=== PATIENT | female | born 1940 | race Caucasian/White ===

== ENCOUNTER → 2017-12-31 16:26 | Outpatient (CLI) | payer MEDICARE, OTHER, SELFPAY ==
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
== END ==
PROVIDERS: Family Provider Family Medicine; PCP Family Medicine; Visit Provider Family Medicine
DX: R04.2 Hemoptysis (principal)
CPT/HCPCS: 71046

== ENCOUNTER 2018-03-28 21:16 | Emergency (ER) | payer MEDICARE, OTHER, SELFPAY ==
[2018-03-28 21:17] VITALS: BP 220/77; PULSE 60; RESP 16; TEMP 36.7; O2SAT 97; BMI 31.1
[2018-03-28 21:22] VITALS: BP 220/77; PULSE 60; RESP 14; O2SAT 96; O2SAT 97
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
[2018-03-28 22:19] LABS: Anion Gap 8 (5-15); BUN 24 mg/dL (7-18); BUN/Creat Ratio 20.3 RATIO (10-20); Calcium,Total 9.1 mg/dL (8.5-10.1); Chloride 105 mmol/L (98-107); Creatinine, Serum 1.18 mg/dL (0.55-1.02); EST Glomerular Filtration Rate 47 mL/min (>60); Est Glom Filt Rate - Afr Amer 57 mL/min (>60); Estimated Creatinine Clearance 29.65 ml/min; Glucose 149 mg/dL (74-106); Potassium 3.6 mmol/L (3.5-5.1); Sodium Level 137 mmol/L (136-145)
[2018-03-29] VITALS: BP 171/92; PULSE 69; RESP 16; O2SAT 93
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
== END 2018-03-29 00:24 | disposition home or self-care (01) ==
LOC: ED 21:55
PROVIDERS: Emergency Provider Emergency Medicine; Family Provider Family Medicine; PCP Family Medicine
DX: S50.12XA Contusion of left forearm, initial encounter (principal); S80.02XA Contusion of left knee, initial encounter; M54.2 Cervicalgia; V49.40XA Driver injured in collision with unspecified motor vehicles in traffic accident, initial encounter; Y93.89 Activity, other specified; Y92.9 Unspecified place or not applicable; I10 Essential (primary) hypertension; E78.00 Pure hypercholesterolemia, unspecified; Z79.82 Long term (current) use of aspirin; Z79.899 Other long term (current) drug therapy
CPT/HCPCS: 70450; 70498; 72125; 73564; 80048; 99284; Q9967; A4216

== ENCOUNTER → 2018-04-24 10:40 | Outpatient (CLI) | payer MEDICARE, OTHER, SELFPAY ==
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
== END ==
LOC: MTLAB 10:55 → MTRAD 10:56
PROVIDERS: Family Provider Family Medicine; PCP Family Medicine; Visit Provider Family Medicine
DX: M79.632 Pain in left forearm (principal)
CPT/HCPCS: 73090

== ENCOUNTER → 2019-05-21 12:10 | Outpatient (CLI) | payer MEDICARE, SELFPAY ==
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
== END ==
PROVIDERS: Family Provider Family Medicine; PCP Family Medicine; Referring Provider Family Medicine; Visit Provider Family Medicine
DX: M77.31 Calcaneal spur, right foot (principal); M19.071 Primary osteoarthritis, right ankle and foot
CPT/HCPCS: 73630

== ENCOUNTER 2019-06-05 18:53 | Emergency (ER) | payer MEDICARE, SELFPAY ==
[2019-06-05 18:54] VITALS: BP 220/103; PULSE 85; RESP 15; TEMP 36.6; O2SAT 98
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
--- NOTE | 2019-06-05 20:16 | ED.DEP ---
ED Disposition - Plan for ED Patient: Instructions: FALL, Mechanical, LACERATION, Extrem (Suture, Staple or Tape), CONTUSION, Elbow, Hip Contusion Referrals: Gricel Helton MD [Primary Care Provider] - 10 Day for suture removal
[2019-06-05 20:27] VITALS: BP 188/60; PULSE 80; RESP 16; O2SAT 97
== END 2019-06-05 20:28 | disposition home or self-care (01) ==
LOC: ED 19:12
PROVIDERS: Emergency Provider Emergency Medicine; Family Provider Family Medicine; PCP Family Medicine
DX: S51.011A Laceration without foreign body of right elbow, initial encounter (principal); S40.011A Contusion of right shoulder, initial encounter; S50.01XA Contusion of right elbow, initial encounter; S70.01XA Contusion of right hip, initial encounter; W10.9XXA Fall (on) (from) unspecified stairs and steps, initial encounter; Y93.K1 Activity, walking an animal; Y92.9 Unspecified place or not applicable; I10 Essential (primary) hypertension; Z79.82 Long term (current) use of aspirin; Z79.899 Other long term (current) drug therapy
CPT/HCPCS: 12001; 73030; 73080; 99284

== ENCOUNTER → 2020-04-11 15:30 | Outpatient (CLI) | payer MEDICARE, SELFPAY ==
[2020-04-11 18:10] LABS: Anion Gap 8 (5-15); BUN 19 mg/dL (7-18); BUN/Creat Ratio 15.3 RATIO (10-20); Chloride 104 mmol/L (98-107); Cholesterol 181 mg/dL (200); Creatinine, Serum 1.24 mg/dL (0.55-1.02); EST Glomerular Filtration Rate 44 mL/min (>60); Est Glom Filt Rate - Afr Amer 54 mL/min (>60); Glucose 171 mg/dL (74-106); High Density Lipoprotein 58 mg/dL; Potassium 3.7 mmol/L (3.5-5.1); Sodium Level 138 mmol/L (136-145); Triglycerides 162 mg/dL; Very Low Density Lipoprotein 32 mg/dL (5-40)
== END ==
PROVIDERS: PCP Family Medicine; Visit Provider Family Medicine
DX: I10 Essential (primary) hypertension (principal)
CPT/HCPCS: 36415; 80048; 80061

== ENCOUNTER → 2020-10-20 11:24 | Outpatient (CLI) | payer MEDICARE, SELFPAY ==
[2020-10-20 13:05] LABS: Hemoglobin A1c 6.5 % (3.8-5.6)
== END ==
PROVIDERS: PCP Family Medicine; Referring Provider Family Medicine; Visit Provider Family Medicine
DX: R73.02 Impaired glucose tolerance (oral) (principal); E55.9 Vitamin D deficiency, unspecified
CPT/HCPCS: 36415; 82306; 83036

== ENCOUNTER → 2021-08-13 13:03 | Outpatient (CLI) | payer MEDICARE, SELFPAY | PROVIDERS: PCP Family Medicine; Visit Provider Family Medicine | DX: U07.1 COVID-19 (principal) | CPT/HCPCS: 87635; U0005; U0003 ==

== ENCOUNTER 2021-08-15 12:10 | Outpatient (CLI) | payer MEDICARE, SELFPAY ==
[2021-08-15] MEDS: 0.9% Saline Lock 10 ML Syringe IV (12:39)
[2021-08-15 12:44] VITALS: BP 141/58; PULSE 78; RESP 16; TEMP 36.9; O2SAT 97; BMI 30.2
[2021-08-15 13:18] VITALS: BP 126/54; PULSE 72; RESP 16; TEMP 36.8; O2SAT 98
[2021-08-15 14:06] VITALS: BP 145/58; PULSE 72; RESP 16; TEMP 36.8; O2SAT 98
[2022-05-15 15:08] LABS: Absolute Lymphocyte Count 1.94 X10^3/uL (0.83-4.51); Absolute Neutrophil Count 3.2 X10^3/uL (2.0-7.7); Basophil# 0.02 X10^3/uL; Basophil% 0.3 % (0-1); Eosinophil# 0.19 X10^3/uL; Eosinophils% 3.2 % (0-5); Hematocrit 37.6 % (37-47); Hemoglobin 13.3 g/dL (12.0-15.0); Lymphocyte # 1.94 X10^3/ul (0.83-4.51); Lymphocyte % 32.7 % (19-41); Mean Corp Hgb Conc 35.4 g/dL (32-36); Mean Corpuscular Volume 93.3 fL (81-99); Mean Platelet Vol. 9.9 fl (6.2-12.0); Monocyte# 0.53 X10^3/uL; Monocyte% 8.9 % (0-10); NRBC Flagged by Analyzer 0 % (0-5); Neutrophil # 3.23 X10^3/uL (2.7-7.7); Neutrophil % 54.6 % (47-70); Platelet Count 251 K/mm3 (150-450); RBC Distribution Width CV 12.2 % (11.6-14.6); RBC Distribution Width SD 42.5 fl (35.1-43.9); Red Blood Count 4.03 M/mm3 (4.2-5.4); White Blood Count 5.9 K/mm3 (4.4-11.0)
[2022-05-15 15:37] LABS: Anion Gap 6 (5-15); BUN 20 mg/dL (7-18); BUN/Creat Ratio 21.3 RATIO (10-20); Calcium,Total 9.1 mg/dL (8.5-10.1); Chloride 106 mmol/L (98-107); Creatinine, Serum 0.94 mg/dL (0.55-1.02); EST Glomerular Filtration Rate 61 mL/min (>60); Est Glom Filt Rate - Afr Amer 73 mL/min (>60); Estimated Creatinine Clearance 34.82 ml/min; Glucose 124 mg/dL (74-106); Potassium 4.1 mmol/L (3.5-5.1); Sodium Level 137 mmol/L (136-145); Thyroid Stim Hormone (TSH) 2.25 uIU/mL (0.358-3.74)
== END 2021-08-15 14:20 | disposition home or self-care (01) ==
LOC: MS3OUT 12:10 → MS3 12:11
PROVIDERS: PCP Family Medicine; Referring Provider Nurse Practitioner Adult Health; Visit Provider Nurse Practitioner Adult Health
DX: Z23 Encounter for immunization (principal); U07.1 COVID-19
CPT/HCPCS: 36415; 80048; 84443; 85025; J7050; M0245; Q0245; A4216

== ENCOUNTER → 2022-05-15 | Outpatient (CLI) | payer MEDICARE, SELFPAY | END | disposition home or self-care (01) | LOC: MFPLAB 12:03 | PROVIDERS: PCP Family Medicine; Referring Provider Family Medicine; Visit Provider Family Medicine | DX: I10 Essential (primary) hypertension (principal); R53.83 Other fatigue ==

== ENCOUNTER 2023-02-08 13:27 | Emergency (ER) | payer MEDICARE, SELFPAY ==
[2023-02-08 13:28] VITALS: BP 227/104; PULSE 91; RESP 14; TEMP 36.6; O2SAT 98; BMI 33.2
--- NOTE | 2023-02-08 13:35 | EKG12_ITS ---
Test Reason : VISION CHANGES Blood Pressure : / mmHG Vent. Rate : 081 BPM Atrial Rate : 081 BPM P-R Int : 192 ms QRS Dur : 096 ms QT Int : 380 ms P-R-T Axes : 070 046 039 degrees QTc Int : 441 ms Normal sinus rhythm Low voltage QRS Nonspecific ST abnormality Abnormal ECG Confirmed by MONTEZ DIEGO, SONDRA ([id number]), market editor MARY METZ ([id number]) on 02/10/2023 2:44:58 PM Referred By: DRAED Confirmed By:VALENTIN HERRMANN MD
--- NOTE | 2023-02-08 13:35 | RAD_ITS ---
INDICATION: Cough EXAMINATION/TECHNIQUE: X-RAY - XR Chest 1 View COMPARISON: December 31, 2017 FINDINGS: LINES/DEVICES: None. LUNGS: No consolidation, edema or effusion. No pneumothorax. MEDIASTINUM AND CARDIOVASCULAR STRUCTURES: Cardiac silhouette not enlarged. Central airways and mediastinal contour are unremarkable. BONES AND SOFT TISSUES: Unremarkable. RAD/Chest 1 View (Portable) IMPRESSION: No radiographic evidence of acute cardiopulmonary disease. Electronically Signed: Jamee Rogel MD at 14:46 EDT ,
--- NOTE | 2023-02-08 13:35 | CT_ITS ---
INDICATION: stroke EXAMINATION: CT BRAIN - CT Head or Brain W/O Contrast Injection TECHNIQUE: Multiple axial images were obtained of the head without intravenous contrast. A radiation dose optimization technique was used for this scan. IV Contrast dosage and agent: None. RADIATION DOSAGE (If Supplied By Facility): CTDIvol = ( 44.99 ) mGy, DLP = ( 779.24 ) mGycm COMPARISON: March 28, 2018 FINDINGS: BRAIN PARENCHYMA: No intra- or extra-axial hemorrhage. No evidence of acute infarct. No intracranial mass or mass effect. There is preservation of the vo/white matter interface. There is a stable focus of encephalomalacia within the right occipital lobe suggestive of an old infarct. Posterior fossa structures are unremarkable. CSF SPACES: Appropriate for age. No hydrocephalus. Basal cisterns are patent. CALVARIUM, SKULL BASE, PARANASAL SINUSES AND MASTOID AIR CELLS: Clear. No discrete lytic or blastic abnormalities. ORBITS: Both globes, extraocular muscles, optic nerves and retrobulbar fat appear unremarkable. ASPECTS Score for Acute Strokes: 10 CT/Brain/Head without Contrast IMPRESSION: Stable examination demonstrating no acute intracranial process. Electronically Signed: Jamee Rogel MD at 14:46 EDT ,
[2023-02-08 13:51] VITALS: BP 200/68; PULSE 78; RESP 16; O2SAT 96
[2023-02-08 14:03] LABS: Absolute Lymphocyte Count 3.84 X10^3/uL (0.83-4.51); Absolute Neutrophil Count 4.5 X10^3/uL (2.0-7.7); Basophil# 0.03 X10^3/uL; Basophil% 0.3 % (0-1); Eosinophil# 0.15 X10^3/uL; Eosinophils% 1.7 % (0-5); Hematocrit 39.6 % (37-47); Hemoglobin 13.6 g/dL (12.0-15.0); Lymphocyte # 3.84 X10^3/ul (0.83-4.51); Lymphocyte % 42.6 % (19-41); Mean Corp Hgb Conc 34.3 g/dL (32-36); Mean Corpuscular Hgb 31.9 pg (27.0-32.0); Monocyte% 5.5 % (0-10); NRBC Flagged by Analyzer 0 % (0-5); Neutrophil # 4.47 X10^3/uL (2.7-7.7); Neutrophil % 49.6 % (47-70); Platelet Count 267 K/mm3 (150-450); RBC Distribution Width SD 41.4 fl (35.1-43.9); Red Blood Count 4.26 M/mm3 (4.2-5.4)
--- NOTE | 2023-02-08 14:05 | EX.ED.DYSGE1 ---
HPI History of Present Illness Chief Complaint: Vision Prob Informant: patient Onset/Context/Timing Onset: Today Context: Sudden Onset Timing: Continuous Quality: Blurry vision, diplopia Location: Right eye Narrative Narrative: Patient presents with blurry vision in her right eye that began today. Patient states she was feeling fine at 11 AM when she laid down for a nap. Patient states that when she woke up from her nap her right eye was blurry. Patient states she was also seeing some double vision when she looked up close. Patient states the diplopia resolved when she looked at a distance. Patient states that when she closes her right eye her vision is normal. Patient states when she closes her left eye her right eye is blurry. Patient denies any loss of vision. Patient denies any headaches. Patient denies any flashes or floaters. Patient denies any paresthesias or weakness in her extremities. Patient denies any difficulty talking or difficulty swallowing. Patient denies any other symptoms. [facility] Medical History Abnormal stress test Family history of hypertension Hyperlipidemia Hypertension Localized edema Palpitations Paroxysmal atrial flutter Premature ventricular contraction Home Medications aspirin 81 mg tablet,delayed release (Adult Low Dose Aspirin) 81 mg PO DAILY 02/28/16 [History Last Taken 02/29/16] metoprolol succinate 50 mg tablet,extended release 24 hr 50 mg PO DAILY #90 tabs 04/16/18 [Rx Last Taken Unknown] losartan 50 mg tablet 25 mg PO DAILY 06/05/19 [History Last Taken Unknown] Allergy/AdvReac Type Severity Reaction Status Date / Time heparin Allergy Unknown Verified 02/08/23 13:34 Family History (Updated 12/03/17 @ 13:10 by Gunjan Mora) Father CAD (coronary artery disease) Mother Diabetes Hypertension Sister Diabetes Social History Smoking Status: Never smoker alcohol intake: current details: occasional substance use type: does not use ROS ROS ED Constitutional Constitutional ED: Denies chills or fever(s) Eyes Eyes: Reports blurry vision, change in vision and diplopia ENT ENT ED: Denies rhinorrhea or sore throat Cardiovascular Cardiovascular: Denies chest pain or palpitations Respiratory/Chest Respiratory/Chest: Denies cough or dyspnea Gastrointestinal Gastrointestinal: Denies nausea or vomiting Genitourinary Genitourinary ED: Denies dysuria or hematuria Musculoskeletal Musculoskeletal: Denies back pain or neck pain Integumentary Denies abscess or rash Neurologic Neurologic: Denies headache(s) or weakness Allergic/Immunologic Allergic/Immunologic ED: Denies mouth swelling or urticaria EXAM Physical Exam Const Vital Signs: 02/08/23 13:28 02/08/23 13:51 02/08/23 13:51 Temperature 97.8 F Temperature Source Temporal Pulse Rate 91 78 Respiratory Rate 14 16 Blood Pressure 227/104 H 200/68 H Blood Pressure Mean 145 112 Pulse Ox 98 96 Oxygen Delivery Method Room Air Room Air Room Air 02/08/23 14:41 Temperature Temperature Source Pulse Rate 84 Respiratory Rate 14 Blood Pressure 186/57 H Blood Pressure Mean 100 Pulse Ox 95 Oxygen Delivery Method Room Air Positive well nourished, well developed and obese General Appearance ED: well developed and NAD Nutritional Appearance: obese HEENT Reports moist mucous membranes Eyes EOMs intact bilaterally Eyes Narrative: The right pupil was approximately 5 mm and reactive. The left pupil was approximately 3 mm and reactive. Funduscopic examination was benign. Tetracaine and fluorescein dye was applied to the right eye. There are no corneal abrasions noted. There is no hyphema noted. There is no cell or flare noted. Pablo-Pen was used. The intraocular pressure of the right eye was 18. Neck supple and no JVD Resp normal respiratory effort and clear to auscultation bilaterally Cardio regular rate and regular rhythm GI normal to inspection, nondistended, normoactive bowel sounds and non-tender Palpation: soft Extremity normal to inspection General Extremety ED: Negative for edema or tenderness General Extremity: Negative for edema Neuro oriented x3, CN's II-XII intact bilaterally and no sensory deficits noted Sensorium / Orientation: alert Motor Exam: strength 5/5 throughout Psych mental status grossly normal Skin no rashes or lesions noted MDM MDM MDM Narrative Medical decision making narrative: Differential diagnosis includes stroke, corneal abrasion, cardiac dysrhythmia, cardiac ischemia, hypertensive urgency, electrolyte abnormality, and migraine. CT scan of the brain will be obtained to assess for stroke. Chest x-ray will be obtained to assess for pneumonia, cardiomegaly, and widened mediastinum. CBC will be obtained to assess for leukocytosis and anemia. EKG will be obtained to assess for cardiac dysrhythmia and cardiac ischemia. Basic metabolic profile will be obtained to assess for electrolyte abnormality and PT with INR PTT will be obtained to assess for coagulopathy. High-sensitivity troponin will be obtained to assess for cardiac ischemia. Urinalysis will be obtained to assess for urinary tract infection. Lab Data Attestation: I reviewed the patient's lab results. Lab results narrative: CBC was reviewed and was within normal limits. Basic metabolic profile was reviewed and was essentially within normal limits. Glucose was slightly elevated at 169. PT was INR and PTT were reviewed and were within normal limits. High-sensitivity troponin was reviewed and was normal at 6. Urinalysis was reviewed and was within normal limits. Labs: Laboratory Results - last 24 hr 02/08/23 02/08/23 02/08/23 13:45 13:45 13:45 WBC 9.0 RBC 4.26 Hgb 13.6 Hct 39.6 MCV 93.0 MCH 31.9 MCHC 34.3 RDW Std Deviation 41.4 RDW Coeff of Cici 12.0 Plt Count 267 MPV 10.0 Immature Gran % (Auto) 0.300 Neut % (Auto) 49.6 Lymph % (Auto) 42.6 H [place] % (Auto) 5.5 Eos % (Auto) 1.7 Baso % (Auto) 0.3 Absolute Neuts (auto) 4.5 Absolute Lymphs (auto) 3.84 Nucleated RBC % 0 PT 11.5 L INR 0.8 APTT 23.0 L Sodium 136 Potassium 3.5 Chloride 102 Carbon Dioxide 24.0 Anion Gap 10 BUN 19 H Creatinine 1.02 Estim Creat Clear Calc 30.02 Est GFR (MDRD) Af Amer 67 Est GFR (MDRD) Non-Af 55 L BUN/Creatinine Ratio 18.6 Glucose 169 H Calcium 9.7 Troponin I High Sens 6 Urine Color Urine Clarity Urine pH Ur Specific [place] Urine Protein Urine Glucose (UA) Urine Ketones Urine Occult Blood Urine Nitrite Urine Bilirubin Urine Urobilinogen Ur Leukocyte Esterase Urine RBC Urine WBC Ur Squamous Epith Cells Urine Bacteria Urine Mucus 02/08/23 14:00 WBC RBC Hgb Hct MCV MCH MCHC RDW Std Deviation RDW Coeff of Cici Plt Count MPV Immature Gran % (Auto) Neut % (Auto) Lymph % (Auto) [place] % (Auto) Eos % (Auto) Baso % (Auto) Absolute Neuts (auto) Absolute Lymphs (auto) Nucleated RBC % PT INR APTT Sodium Potassium Chloride Carbon Dioxide Anion Gap BUN Creatinine Estim Creat Clear Calc Est GFR (MDRD) Af Amer Est GFR (MDRD) Non-Af BUN/Creatinine Ratio Glucose Calcium Troponin I High Sens Urine Color Yellow Urine Clarity Clear Urine pH 6.5 Ur Specific [place] 1.010 Urine Protein Negative Urine Glucose (UA) Normal Urine Ketones Negative Urine Occult Blood 10 H Urine Nitrite Negative Urine Bilirubin Negative Urine Urobilinogen Normal Ur Leukocyte Esterase 25 H Urine RBC 0 SEEN Urine WBC 0 SEEN Ur Squamous Epith Cells 0 SEEN Urine Bacteria 0 SEEN Urine Mucus 0 SEEN Radiography Diagnostic Testing: Clinical Impression(s) from Imaging Studies Brain CT 02/08/23 13:35 IMPRESSION: Stable examination demonstrating no acute intracranial process. Electronically Signed: Jamee Rogel MD at 14:46 EDT , Chest X-Ray 02/08/23 13:35 IMPRESSION: No radiographic evidence of acute cardiopulmonary disease. Electronically Signed: Jamee Rogel MD at 14:46 EDT , Portable 1 view chest x-ray was obtained. On my independent interpretation, lung gee are clear. There is normal cardiac silhouette. Bony thorax is normal. There is no acute process noted. Radiologist also interpreted the x-ray and agrees. CT scan of the brain was obtained. There is no acute intracranial abnormality. This was interpreted by the radiologist and was also independently reviewed by myself. Treatment and Re-Evaluation :: Patient was given a dose of labetalol here. Patient's blood pressure improved to 186/57. Patient was still having some diplopia with near vision. There are no corneal abrasions noted. Patient was advised of all of her findings. Patient was given a referral for ophthalmology. Patient was instructed to follow-up in 2 to 3 days. Patient was instructed return if worse in any way. Patient understood and was agreeable with the plan. All questions were answered. Discharge Plan Triage Chief Complaint: Vision Prob ED Provider: Everett Dotson Dx/Rx/DC Orders Clinical Impression: Blurred vision, right eye, Hypertension Instructions: ED Blurred Vision, ED Hypertension, Established Prescriptions: No Action aspirin [Adult Low Dose Aspirin] 81 MG tablet,delayed release (DR/EC) 81 mg PO DAILY losartan 50 MG tablet 25 mg PO DAILY metoprolol succinate 50 mg tablet extended release 24 hr 50 mg PO DAILY Qty: 90 3RF Primary Care Provider: Gricel Helton Referrals: Gricel Helton MD [Primary Care Provider] - 3-5 Days Joyce Abdul MD [Med Staff - Active Staff] - 2 Days Disposition Disposition: Home, Self Care
[2023-02-08 14:11] LABS: International Normalized Ratio 0.8; Prothrombin Time (Protime)PT. 11.5 SECONDS (11.7-14.9)
[2023-02-08 14:17] LABS: Bacteria 0 SEEN /hpf (None Seen); Mucous, Urine 0 SEEN /hpf (<or=2+); Red Blood Cells-Urine 0 SEEN /hpf (0-5); Squamous Epithelial Cells - UA 0 SEEN /hpf (5-10); White Blood Cells 0 SEEN /hpf (0-5)
[2023-02-08 14:22] LABS: Color, Urine Yellow (Yellow); Glucose, Dipstick Normal (Normal); Ketone-Dipstick Negative (Negative); Leukocyte Esterase-Dipstick 25 /ul (Negative); Nitrite-Dipstick Negative (Negative); Occult Blood-Urine 10 /ul (Negative); Protein-Dipstick Negative (Negative); Urine Bilirubin Dipstick Negative (Negative); Urine Clarity Clear (Clear); Urine Urobilinogen Normal (Normal); Urine pH 6.5 (5.0 - 8.0)
[2023-02-08 14:24] LABS: Anion Gap 10 (5-15); BUN 19 mg/dL (7-18); BUN/Creat Ratio 18.6 RATIO (10-20); Calcium,Total 9.7 mg/dL (8.5-10.1); Chloride 102 mmol/L (98-107); Creatinine, Serum 1.02 mg/dL (0.55-1.02); EST Glomerular Filtration Rate 55 mL/min (>60); Est Glom Filt Rate - Afr Amer 67 mL/min (>60); Estimated Creatinine Clearance 30.02 ml/min; Glucose 169 mg/dL (74-106); Potassium 3.5 mmol/L (3.5-5.1); Sodium Level 136 mmol/L (136-145); Troponin-I HS (w/2H Reflex) 6 pg/mL (3.0-54.0)
[2023-02-08] MEDS: Labetalol (Prefilled) 20 MG/4 ML IV (14:39)
[2023-02-08 14:41] VITALS: BP 186/57; PULSE 84; RESP 14; O2SAT 95
[2023-02-08 15:40] VITALS: BP 143/53; PULSE 79; RESP 19; O2SAT 93
[2023-02-08] MEDS: Tetracaine 0.5% Ophthalmic Bottle 1 DRP OPHTHALMIC (15:41)
[2023-02-08] MEDS: Fluorescein 1 MG STRIP 1 STRIP OPHTHALMIC (15:41)
[2023-02-08 15:58] LABS: Reflex Troponin-HS? (from REC) Y
== END 2023-02-08 15:44 | disposition home or self-care (01) ==
PROVIDERS: Emergency Provider Emergency Medicine; PCP Family Medicine; Visit Provider Emergency Medicine
DX: H53.8 Other visual disturbances (principal); H53.2 Diplopia; I10 Essential (primary) hypertension; E66.9 Obesity, unspecified; Z79.82 Long term (current) use of aspirin; Z79.899 Other long term (current) drug therapy
CPT/HCPCS: 70450; 71045; 80048; 81001; 84484; 85025; 85610; 85730; 93005; 96374; 99283; A4216

== ENCOUNTER 2023-02-10 14:13 | Emergency (ER) | payer MEDICARE, SELFPAY ==
[2023-02-10 14:14] VITALS: BP 212/106; PULSE 77; RESP 18; TEMP 36.6; O2SAT 99; BMI 32.2
[2023-02-10 14:44] VITALS: BMI 32.1
[2023-02-10 15:15] VITALS: BP 208/68
--- NOTE | 2023-02-10 15:34 | EKG12_ITS ---
Test Reason : NEURO Blood Pressure : / mmHG Vent. Rate : 066 BPM Atrial Rate : 066 BPM P-R Int : 176 ms QRS Dur : 094 ms QT Int : 398 ms P-R-T Axes : 039 012 028 degrees QTc Int : 417 ms Sinus rhythm with Premature atrial complexes Low voltage QRS Borderline ECG Confirmed by MONTEZ DIEGO, SONDRA ([id number]), food expeditor MARY METZ ([id number]) on 02/11/2023 1:09:18 PM Referred By: Confirmed By:VALENTIN HERRMANN MD
--- NOTE | 2023-02-10 15:35 | EDS_ITS ---
HPI History of Present Illness Chief Complaint: Neuro S/Sx Narrative Narrative: Patient presents with blurry vision. Onset was 2 days ago. Patient had a CT brain performed. She had her eye pressure checked which was normal. Patient followed up with Dr. Pro today with concern for 3rd nerve palsy. Patient states that when she closes her left eye her right eye is a little blurry. She does report it is improved since Friday. She does not have any headache pain or holiness pain. She initially had a slight headache on Friday which is resolved. 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 She states she has been hydrating well because she is scared she might be dehydrated. Dr. Pro recommended evaluation with a CTA, sed rate, CRP. [facility] Medical History Abnormal stress test Family history of hypertension Hyperlipidemia Hypertension Localized edema Palpitations Paroxysmal atrial flutter Premature ventricular contraction Home Medications aspirin 81 mg tablet,delayed release (Adult Low Dose Aspirin) 81 mg PO DAILY 02/28/16 [History Last Taken 02/29/16] metoprolol succinate 50 mg tablet,extended release 24 hr 50 mg PO DAILY #90 tabs 04/16/18 [Rx Last Taken Unknown] losartan 50 mg tablet 25 mg PO DAILY 06/05/19 [History Last Taken Unknown] Allergy/AdvReac Type Severity Reaction Status Date / Time heparin Allergy Unknown Verified 02/08/23 13:34 Family History Father CAD (coronary artery disease) Mother Diabetes Hypertension Sister Diabetes Social History Smoking Status: Never smoker alcohol intake: current details: occasional substance use type: does not use ROS ROS ED Review of Systems ROS Unobtainable: Denies due to encephalopathy Constitutional Constitutional ED: Denies chills or fever(s) Eyes Eyes: Reports blurry vision right ENT ENT ED: Denies rhinorrhea or sore throat Cardiovascular Cardiovascular: Denies chest pain or palpitations Respiratory/Chest Respiratory/Chest: Denies cough or dyspnea Gastrointestinal Gastrointestinal: Denies abdominal pain or constipation Genitourinary Genitourinary ED: Denies dysuria or hematuria Musculoskeletal Musculoskeletal: Denies arthralgias or back pain Integumentary Denies abscess Neurologic Neurologic: Reports headache(s); Denies paresthesias Psychiatric Psychiatric: Denies anxiety or depression EXAM Physical Exam Const Vital Signs: 02/10/23 14:14 02/10/23 15:15 02/10/23 18:18 Temperature 97.9 F Temperature Source Temporal Pulse Rate 77 70 Respiratory Rate 18 15 Blood Pressure 212/106 H 208/68 H 163/62 H Blood Pressure Mean 141 106 95 Pulse Ox 99 94 Oxygen Delivery Method Room Air Positive well nourished General Appearance ED: NAD HEENT Reports moist mucous membranes and dry mucous membranes Mouth ED: Yes dry mucous membranes Mouth: dry mucous membranes Eyes EOMs intact bilaterally Periorbital: periorbital findings normal Eyelid: eyelids normal Sclera: sclera normal Cornea: cornea normal Pupil: pupil size - right, pupil size - left and other Other Details: Right thigh 5 mm, left eye 3 mm. Both eyes reactive. Neck no lymphadenopathy Chest Wall inspection of chest normal and palpation of chest normal Resp normal respiratory effort and clear to auscultation bilaterally Cardio regular rate and regular rhythm GI normal to inspection, nondistended, normoactive bowel sounds Palpation: soft Neuro oriented x3 and CN's II-XII intact bilaterally Sensorium / Orientation: alert Motor Exam: strength 5/5 throughout Psych mental status grossly normal Skin no rashes or lesions noted MDM MDM MDM Narrative Medical decision making narrative: Patient presents with hyperlipidemia. She states its not quite vertical and not quite horizontal. She reports its been ongoing for 2 days. Initially had a headache which has resolved. No pain in the temples. No dizziness or lightheadedness. Patient was seen by Dr. Pro today who was concerned for 3rd nerve palsy. On examination her pupils are unequal and the right one is 5 mm in the left one is 3 mm. They are both reactive to light. Differential includes CVA, aneurysm. Patient already had a CT that was negative for intracranial hemorrhage. CBC was obtained to assess white blood cell count, hemoglobin which was normal. ESR and CRP were obtained and were also normal. Renal function electrolytes appear to be within normal limits. LFTs are normal. Discussed with Dr. Brown who is on-call for ophthalmology. He recommended follow-up with Dr. Pro. He did not leave the patient need to be admitted. Patient was amenable to this. Impression: 1. 3rd nerve palsy Lab Data Attestation: I reviewed the patient's lab results. Labs: Laboratory Results - last 24 hr 02/10/23 02/10/23 02/10/23 15:45 15:45 15:45 WBC 6.5 RBC 4.28 Hgb 13.7 Hct 39.7 MCV 92.8 MCH 32.0 MCHC 34.5 RDW Std Deviation 41.6 RDW Coeff of Cici 12.2 Plt Count 256 MPV 9.8 Immature Gran % (Auto) 0.500 Neut % (Auto) 68.4 Lymph % (Auto) 22.0 [place] % (Auto) 6.8 Eos % (Auto) 2.0 Baso % (Auto) 0.3 Absolute Neuts (auto) 4.4 Absolute Lymphs (auto) 1.42 Nucleated RBC % 0 ESR 6 Sodium 137 Potassium 3.9 Chloride 105 Carbon Dioxide 24.0 Anion Gap 8 BUN 15 Creatinine 0.97 Estim Creat Clear Calc 33.16 Est GFR (MDRD) Af Amer 71 Est GFR (MDRD) Non-Af 59 L BUN/Creatinine Ratio 15.5 Glucose 161 H Calcium 9.2 Total Bilirubin 0.50 AST 16 ALT 25 Alkaline Phosphatase 108 Troponin I High Sens 5 C-React Prot Ext Range Total Protein 6.8 Albumin 3.5 Globulin 3.3 Albumin/Globulin Ratio 1.1 02/10/23 15:45 WBC RBC Hgb Hct MCV MCH MCHC RDW Std Deviation RDW Coeff of Cici Plt Count MPV Immature Gran % (Auto) Neut % (Auto) Lymph % (Auto) [place] % (Auto) Eos % (Auto) Baso % (Auto) Absolute Neuts (auto) Absolute Lymphs (auto) Nucleated RBC % ESR Sodium Potassium Chloride Carbon Dioxide Anion Gap BUN Creatinine Estim Creat Clear Calc Est GFR (MDRD) Af Amer Est GFR (MDRD) Non-Af BUN/Creatinine Ratio Glucose Calcium Total Bilirubin AST ALT Alkaline Phosphatase Troponin I High Sens C-React Prot Ext Range < 2.90 Total Protein Albumin Globulin Albumin/Globulin Ratio Radiography Diagnostic Testing: Clinical Impression(s) from Imaging Studies Head/Neck CTA 02/10/23 16:42 IMPRESSION: Atherosclerotic calcifications at the cavernous portion of the bilateral internal carotid arteries with approximately 50-60% luminal narrowing. Atherosclerotic calcifications at the carotid bulbs and proximal ICA segments bilaterally with less than 50% luminal narrowing. 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
[2023-02-10 15:53] LABS: Absolute Lymphocyte Count 1.42 X10^3/uL (0.83-4.51); Absolute Neutrophil Count 4.4 X10^3/uL (2.0-7.7); Basophil# 0.02 X10^3/uL; Basophil% 0.3 % (0-1); Eosinophil# 0.13 X10^3/uL; Hematocrit 39.7 % (37-47); Hemoglobin 13.7 g/dL (12.0-15.0); Lymphocyte # 1.42 X10^3/ul (0.83-4.51); Mean Corp Hgb Conc 34.5 g/dL (32-36); Mean Corpuscular Volume 92.8 fL (81-99); Mean Platelet Vol. 9.8 fl (6.2-12.0); Monocyte# 0.44 X10^3/uL; Monocyte% 6.8 % (0-10); NRBC Flagged by Analyzer 0 % (0-5); Neutrophil # 4.41 X10^3/uL (2.7-7.7); Neutrophil % 68.4 % (47-70); Platelet Count 256 K/mm3 (150-450); RBC Distribution Width CV 12.2 % (11.6-14.6); RBC Distribution Width SD 41.6 fl (35.1-43.9); Red Blood Count 4.28 M/mm3 (4.2-5.4); White Blood Count 6.5 K/mm3 (4.4-11.0)
--- NOTE | 2023-02-10 15:58 | CM.ED ---
Social Work Note Referral Source: Case find Referral Reason: validate AD SW met with patient and introduced herself and role as [facility] SW. Patient lying in hospital bed and agreeable to speak with SW. SW inquired about advanced directives. Patient recalls having a living will but unsure about HCPOA. SW provided brief education regarding AD. Patient states she will review documents at home to determine if it's been completed and provide copies to [facility] when able. No other needs voiced at this time. Rubina Frank MSW, JENNA
[2023-02-10 16:23] LABS: ALB/GLOB Ratio 1.1 RATIO (0.9-2.4); AST(SGOT) 16 U/L (15-37); Alanine Aminotransfer ALT/SGPT 25 U/L (13-56); Albumin, Serum 3.5 g/dL (3.2-5.0); Alkaline Phosphatase 108 U/L (45-117); Anion Gap 8 (5-15); BUN 15 mg/dL (7-18); BUN/Creat Ratio 15.5 RATIO (10-20); Calcium,Total 9.2 mg/dL (8.5-10.1); Chloride 105 mmol/L (98-107); Creatinine, Serum 0.97 mg/dL (0.55-1.02); EST Glomerular Filtration Rate 59 mL/min (>60); Est Glom Filt Rate - Afr Amer 71 mL/min (>60); Estimated Creatinine Clearance 33.16 ml/min; Globulin 3.3 g/dL (2.2-4.2); Glucose 161 mg/dL (74-106); Potassium 3.9 mmol/L (3.5-5.1); Protein, Total 6.8 g/dL (6.4-8.2); Sodium Level 137 mmol/L (136-145); Troponin-I HS 5 pg/mL (3.0-54.0)
--- NOTE | 2023-02-10 16:42 | CT_ITS ---
INDICATION: 3rd nerve palsy righ eye EXAMINATION: CT BRAIN WITH CONTRAST TECHNIQUE: Noncontrast axial images were obtained of the brain. Subsequently, routine carotid CT angiogram protocol was performed without and with IV contrast. In addition, images were obtained of the [place]. NASCET criteria using the distal ICAs for comparison were used for evaluation of stenoses. 3D reconstructions were reviewed. A radiation dose optimization technique was used for this scan. IV Contrast dosage and agent: COMPARISON: None. FINDINGS: --CTA NECK: AORTIC ARCH AND BRANCHES: Normal anatomy, patent. RIGHT CCA: No occlusion, significant stenosis or dissection. RIGHT ICA: Atherosclerotic calcifications at the carotid bulb and proximal ICA segment with less than 50% luminal narrowing. LEFT CCA: No occlusion, significant stenosis or dissection. LEFT ICA: Atherosclerotic calcifications at the carotid bulb and proximal ICA segment with less than 50% luminal narrowing. RIGHT VERTEBRAL ARTERY: No occlusion, significant stenosis or dissection. LEFT VERTEBRAL ARTERY: No occlusion, significant stenosis or dissection. NECK SOFT TISSUES: Unremarkable. --CTA HEAD: --Anterior circulation: ICAs: Atherosclerotic calcifications at the cavernous portion of the bilateral internal carotid arteries with approximately 50-60% luminal narrowing. ACAs: No significant stenosis at the visualized segments. ACOM: Present. MCAs: No significant stenosis at the visualized segments. --Posterior circulation: PCOMs: Nonvisualization bilaterally. chrome cleaner: No significant stenosis at the visualized segments. BASILAR ARTERY: No significant stenosis. VERTEBRAL ARTERIES: No significant stenosis at the intradural/visualized segments. No evidence of intracranial aneurysm or vascular malformation. CT/CTA Head AND Neck W/ Contrast IMPRESSION: Atherosclerotic calcifications at the cavernous portion of the bilateral internal carotid arteries with approximately 50-60% luminal narrowing. Atherosclerotic calcifications at the carotid bulbs and proximal ICA segments bilaterally with less than 50% luminal narrowing. Electronically Signed: Jeff Malagon DO at 17:24 EDT ,
[2023-02-10 17:18] LABS: Erythrocyte Sedimentation Rate 6 mm/hr (0-30)
[2023-02-10 17:36] LABS: CRP < 2.90 mg/L (0.0-3.0)
[2023-02-10 18:18] VITALS: BP 163/62; PULSE 70; RESP 15; O2SAT 94
== END 2023-02-10 19:55 | disposition home or self-care (01) ==
PROVIDERS: Emergency Provider Student in an Organized Health Care Education/Training Program; PCP Family Medicine; Visit Provider Student in an Organized Health Care Education/Training Program
DX: H47.9 Unspecified disorder of visual pathways (principal); I48.0 Paroxysmal atrial fibrillation; H53.8 Other visual disturbances; I10 Essential (primary) hypertension; Z79.82 Long term (current) use of aspirin; Z79.899 Other long term (current) drug therapy
CPT/HCPCS: 70496; 70498; 80053; 84484; 85025; 85652; 86140; 93005; 99282; Q9967; A4216

== ENCOUNTER → 2023-02-25 | Outpatient (CLI) | payer MEDICARE, SELFPAY ==
--- NOTE | 2023-02-25 10:45 | MRI_ITS ---
STUDY: MRI BRAIN WITH AND WITHOUT CONTRAST REASON FOR EXAM: Female, 82 years old. 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 IV 15ml clariscan was administered for the contrast portion of the examination. COMPARISON: Head CT dated February 08, 2023 FINDINGS: There is moderate cerebral atrophy with widening of the extra-axial spaces and ventricular dilatation. There are multiple white matter hyperintensities, distributed throughout the deep white matter tracts of the cerebral hemispheres, consistent with mild to moderate chronic white matter ischemic changes. There is no evidence for recent intracranial ischemia or other cause of cytotoxic edema on diffusion weighted imaging (DWI). Normal T2* images of the brain without demonstrated susceptibility artifact. There is no demonstrated hemosiderin stain. 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 Normal bilateral basal ganglia. Normal thalami. There is no extra-axial fluid accumulation. Normal flow voids within the major intracranial circulation suggesting patency by spin echo criteria. Normal venous enhancement. There is no enhancing intra-axial or extra-axial abnormality. Normal sella turcica, pituitary gland, infundibular stalk, optic chiasm and hypothalamus. Normal tectal plate and pineal gland. Normal midbrain, carly and medulla. Normal cerebellum. Normal basal cisterns. Normal bilateral temporal bones. Normal bilateral internal auditory canals. No demonstrated orbital abnormality, within the constraints of a routine brain study. Normal visualized paranasal sinuses. Normal calvarium and skull base. Normal visualized soft tissue structures. Normal visualized upper cervical spine. MRI/Brain W/WO Contrast IMPRESSION: Normal unenhanced and enhanced MRI of the brain. Electronically Signed: Ryley Pond MD at 12:18 EDT Reading Location ID and State: [facility] / [place] , Service support ,
== END | disposition home or self-care (01) ==
PROVIDERS: PCP Family Medicine; Referring Provider Ophthalmology; Visit Provider Ophthalmology
DX: H49.01 Third [oculomotor] nerve palsy, right eye (principal)
CPT/HCPCS: 70553; A9575

== ENCOUNTER 2023-03-30 09:27 | Emergency (ER) | payer MEDICARE, SELFPAY ==
[2023-03-30 09:28] VITALS: BP 184/127; PULSE 72; RESP 15; TEMP 36.3; O2SAT 97; BMI 31.3
--- NOTE | 2023-03-30 09:57 | CT_ITS ---
STUDY: CT ABDOMEN AND PELVIS WITH CONTRAST REASON FOR EXAM: Female, 82 years old. Diffuse abdominal pain nausea and vomiting RADIATION DOSAGE (If Supplied By Facility): CTDIvol = ( 15.83 ) mGy, DLP = ( 836.59 ) mGycm TECHNIQUE: Transaxial images were obtained from the dome of the diaphragm to the symphysis pubis without oral contrast. IV 100mL Isovue-370 was administered. Sagittal and coronal images were reconstructed. Individualized dose optimization techniques were used for this CT. COMPARISON: Previous ultrasound FINDINGS: The visualized lung bases are unremarkable. The visualized portions of the heart are within normal limits. Normal liver. Normal gallbladder and extrahepatic biliary system. Normal spleen. Normal pancreas. Normal bilateral adrenal glands. There is mild right hydronephrosis and hydroureter. However, no obstructing stone is noted. The right ureter is dilated to the level of the crossing iliac vessel after which it returns to a normal course and caliber. Left kidney free of obstructive uropathy. Neither kidney shows evidence of a solid lesion, there are scattered simple left renal cysts. There is a small hiatal hernia. Normal small intestine. Normal colon. The appendix is visualized and appears normal. Appendix seen on coronal reconstructed images 47 through 67 There is diffuse atherosclerotic calcification of the abdominal aorta, without a demonstrated aneurysm. Normal inferior vena cava. There is nonspecific induration of the mesenteric fat, but no suspicious adenopathy, free fluid or air. Normal urinary bladder. Uterus is present, the endometrium cannot be accurately evaluated with CT. Normal abdominal wall. There is an acute fracture affecting the superior endplate of the T12 vertebral body with soft tissue swelling and 5-10% retropulsion, but no central canal stenosis or foraminal narrowing. 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 Degenerative changes noted throughout the lumbar spine and pelvis, no other demonstrated fracture. CT/Abdomen/Pelvis W IV Cont ONLY IMPRESSION: No acute compression fracture affecting the superior endplate of T12 with soft tissue swelling and 5-10% retropulsion. No free intraperitoneal fluid, air, or suspicious adenopathy. Normal appendix visualized Nonspecific induration of the mesenteric fat Small hiatal hernia Mild right hydronephrosis without obstructing stone. Ureter is mildly dilated to the level of the crossing right iliac vessel which may be causing the partial obstruction Uterus is present, the endometrium cannot be accurately evaluated with CT Electronically Signed: Juan Francisco La MD at 11:47 EDT ,
[2023-03-30] MEDS: Morphine 4 MG/ML Syringe IV (10:11)
[2023-03-30] MEDS: 0.9% Normal Saline 1,000 ML 1000 ML IV (10:11)
[2023-03-30] MEDS: Ondansetron 4 MG/2 ML Vial IV (10:11)
[2023-03-30 10:21] LABS: Absolute Lymphocyte Count 1.07 X10^3/uL (0.83-4.51); Absolute Neutrophil Count 6.2 X10^3/uL (2.0-7.7); Basophil# 0.01 X10^3/uL; Basophil% 0.1 % (0-1); Eosinophil# 0.03 X10^3/uL; Eosinophils% 0.4 % (0-5); Hematocrit 36.4 % (37-47); Hemoglobin 13.3 g/dL (12.0-15.0); Lymphocyte # 1.07 X10^3/ul (0.83-4.51); Mean Corp Hgb Conc 36.5 g/dL (32-36); Mean Corpuscular Hgb 33.3 pg (27.0-32.0); Monocyte# 0.29 X10^3/uL; Monocyte% 3.8 % (0-10); NRBC Flagged by Analyzer 0 % (0-5); Neutrophil # 6.21 X10^3/uL (2.7-7.7); Neutrophil % 80.9 % (47-70); Platelet Count 248 K/mm3 (150-450); RBC Distribution Width CV 11.8 % (11.6-14.6); RBC Distribution Width SD 39.3 fl (35.1-43.9); White Blood Count 7.7 K/mm3 (4.4-11.0)
[2023-03-30 10:36] LABS: ALB/GLOB Ratio 1.1 RATIO (0.9-2.4); AST(SGOT) 22 U/L (15-37); Alanine Aminotransfer ALT/SGPT 21 U/L (13-56); Albumin, Serum 3.5 g/dL (3.2-5.0); Alkaline Phosphatase 102 U/L (45-117); Anion Gap 11 (5-15); BUN 10 mg/dL (7-18); BUN/Creat Ratio 13.2 RATIO (10-20); Calcium,Total 8.8 mg/dL (8.5-10.1); Chloride 98 mmol/L (98-107); Creatinine, Serum 0.76 mg/dL (0.55-1.02); EST Glomerular Filtration Rate 78 mL/min (>60); Est Glom Filt Rate - Afr Amer 94 mL/min (>60); Estimated Creatinine Clearance 32.17 ml/min; Globulin 3.1 g/dL (2.2-4.2); Glucose 196 mg/dL (74-106); Lipase 31 U/L (13-75); Protein, Total 6.6 g/dL (6.4-8.2); Sodium Level 128 mmol/L (136-145)
[2023-03-30 11:38] LABS: Bacteria 0 SEEN /hpf (None Seen); Mucous, Urine 0 SEEN /hpf (<or=2+); Red Blood Cells-Urine 0 SEEN /hpf (0-5); Squamous Epithelial Cells - UA 0 SEEN /hpf (5-10); White Blood Cells 0 SEEN /hpf (0-5)
[2023-03-30 12:01] LABS: Color, Urine Yellow (Yellow); Glucose, Dipstick 100 mg/dl (Normal); Ketone-Dipstick 5 mg/dl (Negative); Leukocyte Esterase-Dipstick Negative /ul (Negative); Nitrite-Dipstick Negative (Negative); Occult Blood-Urine 10 /ul (Negative); Protein-Dipstick 15 mg/dl (Negative); Urine Bilirubin Dipstick Negative (Negative); Urine Clarity Clear (Clear); Urine Urobilinogen Normal (Normal)
[2023-03-30] MEDS: HYDROcodone Bitartrate/Apap 5/325 Tablet PO (14:06)
[2023-03-30 14:36] VITALS: PULSE 74; O2SAT 99
--- NOTE | 2023-03-30 15:29 | ED.VIS.GI ---
HPI HPI - GI History of Present Illness Chief Complaint: Nausea/Vomiting Narrative Narrative: 82-year-old female presenting with nausea/vomiting. She does not believe she is eaten anything abnormal. Nobody else is sick in the home. She has not had a fever. She has not been able to hold down any food or fluids. She states her abdomen is crampy but there is no focal pain anywhere. She does note that she has severe back pain in the lower back in the midline. This is new. She denies loss of bladder or bowel control. She denies saddle anesthesia. She has been ambulatory. Patient denies any trauma. She has no paresthesias. [facility] Medical History Abnormal stress test Family history of hypertension Hyperlipidemia Hypertension Localized edema Palpitations Paroxysmal atrial flutter Premature ventricular contraction Home Medications aspirin 81 mg tablet,delayed release (Adult Low Dose Aspirin) 81 mg PO DAILY 02/28/16 [History Last Taken 02/29/16] metoprolol succinate 50 mg tablet,extended release 24 hr 50 mg PO DAILY #90 tabs 04/16/18 [Rx Last Taken Unknown] losartan 50 mg tablet 25 mg PO DAILY 06/05/19 [History Last Taken Unknown] hydrocodone-acetaminophen 5-325mg 5mg-325mg 1 tab PO Q4H PRN PRN Pain 3 days #12 TABLETS 03/30/23 [Rx Last Taken Unknown] ondansetron 4 mg disintegrating tablet 4 mg PO Q8H PRN PRN Nausea #20 tabs 03/30/23 [Rx Last Taken Unknown] Allergy/AdvReac Type Severity Reaction Status Date / Time heparin Allergy Unknown Verified 03/30/23 09:30 Family History Father CAD (coronary artery disease) Mother Diabetes Hypertension Sister Diabetes Social History Smoking Status: Never smoker alcohol intake: current details: occasional substance use type: does not use ROS ROS ED Constitutional Constitutional ED: Denies chills or fever(s) ENT ENT ED: Denies rhinorrhea or sore throat Cardiovascular Cardiovascular: Denies chest pain or palpitations Respiratory/Chest Respiratory/Chest: Denies cough or dyspnea Gastrointestinal Gastrointestinal: Reports abdominal pain, nausea and vomiting Genitourinary Genitourinary ED: Denies dysuria or hematuria Musculoskeletal Musculoskeletal: Reports back pain Integumentary Denies abscess Neurologic Neurologic: Denies headache(s) or paresthesias Psychiatric Psychiatric: Denies anxiety or depression EXAM Physical Exam Const Vital Signs: 03/30/23 09:28 03/30/23 14:36 03/30/23 14:37 Temperature 97.4 F L Temperature Source Temporal Pulse Rate 72 74 Respiratory Rate 15 Blood Pressure 184/127 H Blood Pressure Mean 146 Pulse Ox 97 99 Oxygen Delivery Method Room Air Room Air Positive well nourished General Appearance ED: Negative for pallor HEENT Reports moist mucous membranes atraumatic Eyes PERRL and EOMs intact bilaterally Resp normal respiratory effort and clear to auscultation bilaterally Auscultation: Negative for rales, rhonchi or wheezes Cardio regular rate and regular rhythm GI non-tender Back/Spine no CVA tenderness Thoracic Spine / Upper Back: thoracic spinal tenderness T12 Extremity full ROM General Extremety ED: Negative for edema General Extremity: Negative for edema Neuro CN's II-XII intact bilaterally, moves all extremities and no sensory deficits noted Sensorium / Orientation: alert Motor Exam: strength 5/5 throughout Psych mental status grossly normal and thought process normal Skin no wounds General Skin Exam: Negative for jaundice or pallor MDM MDM MDM Narrative Medical decision making narrative: 82-year-old female presenting with nausea/vomiting some mild crampy diffuse abdominal pain but she does note that she has sharp pain in the back is in the midline. She has not a fever. Differential includes but is not limited to GERD, gastritis, peptic ulcer disease, acute cholecystitis, acute cholelithiasis, appendicitis, diverticulitis, pancreatitis, small bowel obstruction, perforated bowel, viral etiology, food poisoning. For the back pain consider kidney stone versus compression fracture. CBC was obtained to assess white blood cell count, hemoglobin, platelets. CMP to assess liver function, renal function, glucose, anion gap, electrolytes. Urinalysis to assess for UTI. Patient was medicated with morphine and Zofran. She was given IV fluids. CBC shows no leukocytosis 7.7. Hemoglobin hematocrit are stable. Platelets are normal. Liver function, renal function, electrolytes all within normal limits with exception of a sodium of 128. Urinalysis was negative for infection. CT of the abdomen pelvis with IV contrast shows a mild right-sided hydronephrosis however there is no obstruction. I feel she can follow-up with urology for this as her renal function is normal and she has no UTI. She does have an acute T12 compression deformity. We discussed this. We will have her follow-up with spine for this. She was given a prescription for [place] and Zofran for home. Return precautions discussed. Impression: 1. T12 compression fracture 2. nausea/vomiting Lab Data Attestation: I reviewed the patient's lab results. Labs: Laboratory Results - last 24 hr 03/30/23 03/30/23 03/30/23 10:07 10:07 11:32 WBC 7.7 RBC 4.00 L Hgb 13.3 Hct 36.4 L MCV 91.0 MCH 33.3 H MCHC 36.5 H RDW Std Deviation 39.3 RDW Coeff of Cici 11.8 Plt Count 248 MPV 10.0 Immature Gran % (Auto) 0.800 Neut % (Auto) 80.9 H Lymph % (Auto) 14.0 L [place] % (Auto) 3.8 Eos % (Auto) 0.4 Baso % (Auto) 0.1 Absolute Neuts (auto) 6.2 Absolute Lymphs (auto) 1.07 Nucleated RBC % 0 Sodium 128 L Potassium 4.0 Chloride 98 Carbon Dioxide 19.0 L Anion Gap 11 BUN 10 Creatinine 0.76 Estim Creat Clear Calc 32.17 Est GFR (MDRD) Af Amer 94 Est GFR (MDRD) Non-Af 78 BUN/Creatinine Ratio 13.2 Glucose 196 H Calcium 8.8 Total Bilirubin 0.90 AST 22 ALT 21 Alkaline Phosphatase 102 Total Protein 6.6 Albumin 3.5 Globulin 3.1 Albumin/Globulin Ratio 1.1 Lipase 31 Urine Color Yellow Urine Clarity Clear Urine pH 7.0 Ur Specific [place] 1.010 Urine Protein 15 H Urine Glucose (UA) 100 H Urine Ketones 5 H Urine Occult Blood 10 H Urine Nitrite Negative Urine Bilirubin Negative Urine Urobilinogen Normal Ur Leukocyte Esterase Negative Urine RBC 0 SEEN Urine WBC 0 SEEN Ur Squamous Epith Cells 0 SEEN Urine Bacteria 0 SEEN Urine Mucus 0 SEEN Radiography Diagnostic Testing: Clinical Impression(s) from Imaging Studies Abdomen/Pelvis CT 03/30/23 09:57 IMPRESSION: No acute compression fracture affecting the superior endplate of T12 with soft tissue swelling and 5-10% retropulsion. No free intraperitoneal fluid, air, or suspicious adenopathy. Normal appendix visualized Nonspecific induration of the mesenteric fat Small hiatal hernia Mild right hydronephrosis without obstructing stone. Ureter is mildly dilated to the level of the crossing right iliac vessel which may be causing the partial obstruction Uterus is present, the endometrium cannot be accurately evaluated with CT Electronically Signed: Juan Francisco La MD at 11:47 EDT Reading Location ID and State: [facility] / [place] , Service support , Discharge Plan Triage Chief Complaint: Nausea/Vomiting ED Provider: Harshal James Dx/Rx/DC Orders Instructions: Compression Fx, ED Vomiting (Adult) Prescriptions: New hydrocodone-acetaminophen 5-325 mg tablet 1 tab PO Q4H PRN PRN (Reason: Pain) 3 Days Qty: 12 0RF ondansetron 4 mg tablet,disintegrating 4 mg PO Q8H PRN PRN (Reason: Nausea) Qty: 20 0RF No Action aspirin [Adult Low Dose Aspirin] 81 MG tablet,delayed release (DR/EC) 81 mg PO DAILY losartan 50 MG tablet 25 mg PO DAILY metoprolol succinate 50 mg tablet extended release 24 hr 50 mg PO DAILY Qty: 90 3RF Primary Care Provider: Gricel Helton Referrals: Gricel Helton MD [Primary Care Provider] - Disposition Disposition: Home, Self Care Discharge Date/Time: 03/30/23 14:37
== END 2023-03-30 14:37 | disposition home or self-care (01) ==
PROVIDERS: Emergency Provider Student in an Organized Health Care Education/Training Program; PCP Family Medicine; Visit Provider Student in an Organized Health Care Education/Training Program
DX: S22.089A Unspecified fracture of T11-T12 vertebra, initial encounter for closed fracture (principal); R11.2 Nausea with vomiting, unspecified; I10 Essential (primary) hypertension; Z79.82 Long term (current) use of aspirin; Z79.899 Other long term (current) drug therapy; X58.XXXA Exposure to other specified factors, initial encounter
CPT/HCPCS: 74177; 80053; 81001; 83690; 85025; 96361; 96374; 96375; 99284; J7030; Q9967; A4216; J2405

== ENCOUNTER → 2023-06-04 | Outpatient (CLI) | payer MEDICARE, SELFPAY ==
--- NOTE | 2023-06-04 11:16 | BD_ITS ---
STUDY: DUAL ENERGY X-RAY ABSORPTIOMETRY / DXA REASON FOR EXAM: Female, 82 years old. N95.9 TECHNIQUE: Bone Mineral Density (BMD) measurements of lumbar spine and bilateral hips were obtained. COMPARISON: None. FINDINGS: Lumbar Spine (L1-L4): g/cm2 (0.876) / T-score (-1.4) / Z-score (1.3) Findings are suggestive of osteopenia with a low fracture risk. Left Femur Total: g/cm2 (0.711) / T-score (-1.9) / Z-score (0.4) Left Femoral Neck: g/cm2 (0.580) / T-score (-2.4) / Z-score (0.0) Right Femur Total: g/cm2 (0.701) / T-score (-2.0) / Z-score (0.3) Right Femoral Neck: g/cm2 (0.530) / T-score (-2.9) / Z-score (-0.4) BD/Dexa Bone Density Study IMPRESSION: The patient is considered osteoporotic as outlined below according to World [employer] Organization (WHO) criteria with a high fracture risk. Reference Information: The T-score is the number of standard deviations above or below the standard which is normal for young adults at their peak bone mineral density. The World Health Organization (WHO) interprets the T-scores as follows: Above -1 Normal bone density Between -1 and -2.5 Osteopenia Equal to / or below -2.5 Osteoporosis As a practical clinical guideline, osteopenia may be graded as follows: Mild -1 through -1.5 Moderate -1.6 through -2.0 Severe -2.1 through -2.4 The Z-score is the number of standard deviations above or below age-matched controls. A Z-score of less than -1.5 would be considered abnormal. References: 1. NIH Osteoporosis and Related Bone Diseases www osteo.org 2. International Society for Clinical Densitometry www iscd.org 3. National Osteoporosis Foundation www nof.org Electronically Signed: Holland Rodriguez MD at 14:19 EDT ,
== END | disposition home or self-care (01) ==
LOC: OPBD 11:08
PROVIDERS: PCP Family Medicine; Referring Provider Family Medicine; Visit Provider Family Medicine
DX: N95.9 Unspecified menopausal and perimenopausal disorder (principal)
CPT/HCPCS: 77080

== ENCOUNTER → 2024-02-27 | Outpatient (CLI) | payer MEDICARE, SELFPAY ==
[2024-02-27 18:11] LABS: AST(SGOT) 15 U/L (15-37); Alanine Aminotransfer ALT/SGPT 22 U/L (13-56); Anion Gap 8 (5-15); BUN 18 mg/dL (7-18); BUN/Creat Ratio 19.5 RATIO (10-20); Calcium,Total 9.5 mg/dL (8.5-10.1); Chloride 105 mmol/L (98-107); Cholesterol 206 mg/dL (200); Creatinine, Serum 0.92 mg/dL (0.55-1.02); EST Glomerular Filtration Rate 62 mL/min (>60); Est Glom Filt Rate - Afr Amer 75 mL/min (>60); Glucose 126 mg/dL (74-106); High Density Lipoprotein 63 mg/dL; Potassium 3.8 mmol/L (3.5-5.1); Sodium Level 137 mmol/L (136-145); Triglycerides 162 mg/dL; Very Low Density Lipoprotein 32 mg/dL (5-40); Vitamin D,25 Hydroxy 55.6 ng/mL
[2024-02-27 19:58] LABS: Protein, Urine (Random) < 6.0 mg/dL (<11.9)
== END | disposition home or self-care (01) ==
LOC: MFPLAB 15:05
PROVIDERS: PCP Family Medicine; Visit Provider Family Medicine
DX: E11.8 Type 2 diabetes mellitus with unspecified complications (principal); E55.9 Vitamin D deficiency, unspecified
CPT/HCPCS: 36415; 80048; 80061; 82306; 82570; 84156; 84450; 84460

== ENCOUNTER → 2025-04-06 | Outpatient (CLI) | payer MEDICARE, SELFPAY ==
--- OUTSIDE RECORDS SUMMARY | 2025-04-06 08:36 | XMS RPT_ITS | CCD ---
Author Organization [facility] Inform ion Partnership [facility] Care Team Providers Care Fuse Cup Expander Name Role Phone Gricel Helton Primary Care Provider Gricel Helton Attending Unavailable Gricel Helton Primary Care Unavailable Allergies Allergy Classification Reported Allergen(s) Allergy Type Date of Onset Reaction(s) Facility (3 sources) heparin Drug Allergy 06-05-2019 Unknown [facility] (1 source) heparin Drug Allergy 03-30-2023 [facility] Repository Medications Current Medications Medication Drug Class(es) Dates Sig (Normalized) Sig (Original) aspirin 81 mg delayed release oral tablet (3 sources) Platelet Aggregation Inhibitor, Nonsteroidal Anti-inflammatory Drug Start: 02-28-2016 take 1 tablet by mouth once daily Aspirin (Adult Low Dose Aspirin Ec) 81 MG tablet,delayed release (DR/EC) Active 81 MG PO DAILY February 28, 2016 12:00am Comment on above: Take 81 mg by mouth. doxycycline monohydrate 100 mg oral tablet (1 source) Tetracycline-class Drug Start: 08-03-2021 End: 08-13-2021 take 1 tablet by mouth twice daily doxycycline monohydrate 100 mg tablet Indications: Wound of skin Take 1 tablet by mouth twice daily for 10 days. 20 tablet 0 08/03/2021 08/13/2021 Active Comment on above: Take 1 tablet by [facility] twice daily for 10 days. Fish,Bora,Flax Oils-Om3,6,9no1 ([place] 3-6-9 1,200 Mg Softgel) 1,200 MG capsule (1 source) Start: 02-28-2016 Fish,Bora,Flax Oils-Om3,6,9no1 ([place] 3-6-9 1,200 Mg Softgel) 1,200 MG capsule Active 1200 MG PO DAILY February 28, 2016 12:00am losartan potassium 50 mg oral tablet (3 sources) Angiotensin 2 Receptor Devorah Start: 06-05-2019 take 25 mg by mouth once daily Losartan Active 25 MG PO DAILY June 05, 2019 12:00am Start: 06-05-2019 losartan (COZA AR) 50 mg tablet mupirocin 0.02 mg/mg topical ointment (1 source) RNA Synthetase Inhibitor Antibacterial Start: 08-03-2021 End: 08-13-2021 mupirocin (BACTROBAN) 2 % ointment Indications: Wound of skin Apply to affected area three times daily for 10 days. 22 g 0 08/03/2021 08/13/2021 Active Comment on above: Apply to affected ar ea three times daily for 10 days. Completed/Discontinued Medications Medication Drug Class(es) Dates Sig (Normalized) Sig (Original) Ascorbic Acid (1 source) Vitamin C ascorbic acid (VITAMIN C ORAL) Take by mouth. 0 Active Comment on above: Take by mouth. cholecalciferol, vitamin D3, (VITAMIN D3 ORAL) (1 source) cholecalciferol, vitamin D3, (VITAMIN D3 ORAL) Take by mouth. 0 Active Comment on above: Take by mouth. 24 hr metoprolol succinate 50 mg extended release oral tablet (7 sources) beta-Adrenergic Devorah Start: 07-30-2021 metoprolol succinate ER (TOPROL XL) 50 mg 24 hr tablet Start: 02-28-2016 End: 04-16-2018 take 50 mg by mouth once daily Metoprolol Succinate Di scontinued 50 MG PO DAILY 90 April 16, 2018 4:45pm April 16, 2018 4:46pm MULTI-VITAMIN ORAL (1 source) MULTI-VITAMIN OR AL Take by mouth. 0 Active Comment on above: Take by mouth. Problems Problem Classification Problem Date Documented Date Episodic/Chronic Blindness and vision defects (1 source) Blurring of visual image; Translations: [Other visual disturbances] 02-08-2023 Episodic Cardiac dysrhythmias (4 sources) Paroxysmal atrial flutter; Translations: [Unspecified atrial flutter] 12-03-2017 Chronic Cardiac dysrhythmias (2 sources) Palpitations; Translations: [Palpitations] 12-03-2017 Episodic Diabetes mellitus with complications (1 source) Type 2 diabetes mellitus with unspecified complications; Translations: [Type 2 diabetes mellitus with unspecified complications] Onset: 03-05-2024 Chronic Disorders of lipid metabolism (2 sources) Hyperlipidemia; Translations: [Hyperlipidemia, unspecified] 12-03-2017 Chronic Essential hypertension (2 sources) Hypertensive disorder; Translations: [Essential (primary) hypertension] 02-08-2023 Chronic Other injuries and conditions due to external causes (1 source) Wound of skin; Translations: [Other injury of unspecified body region, initial encounter] Episodic Other screening for suspected conditions (not mental disorders or infectious disease) (2 sources) Cardiovascular stress test abnormal; Translations: [Abnormal result of other cardiovascular function study] 12-03-2017 Episodic Unclassified (2 sources) Age more than 65 years; Translations: [Over 65 years old] 08-14-2021 Viral infection (2 sources) Disease caused by 2019-nCoV; Translations: [COVID-19] 08-14-2021 Episodic Results Test Name Value Interpretation Reference Range Facility Absolute lymphocyte countOrd ered By: Dr. Dotson on 02-08-2023 Lymphocytes Auto (Unsp spec) [#/Vol] 3.84 10*3/uL 0.83-4.51 [facility] Basophil percentageOrdered B y: Dr. Dotson on 02-08-2023 Basophil percentage 0 SEEN /hpf 0-5 [facility] Basophils/100 WBC (Bld) 0.3 % 0-1 [facility] Chloride [Moles/Vol] 102 mmol/L 98-107 [facility] Eosinophils/100 WBC (Bld) 1.7 % 0-5 [facility] Glucose [Mass/Vol] 169 mg/dL 74-106 [facility] Comment on above: Fasting Glucose resu lt greater than or equal to 126 mg/dL suggests DIABETES MELLITUS per A.D.A. criteria. Neutrophils (Bld) [#/Vol] 4.5 10*3/uL 2.0-7.7 [facility] Neutrophils/100 WBC (Bld) 49.6 % 47-70 [facility] Potassium [Moles/Vol] 3.5 mmol/L 3.5-5.[address] [facility] Sodium [Moles/Vol] 136 mmol/L 136-145 [facility] WBC (Bld) [#/Vol] 9.0 10*3/uL 4.4-11.0 [facility] Bilirubin Test strip Ql (U)O rdered By: Dr. Dotson on 02-08-2023 Bilirubin Ql (U) Negative Negative [facility] Blood erythrocytes count (nu mber/volume)Ordered By: Dr. Dotson on 02-08-2023 RBC (Bld) [#/Vol] 4.26 10*6/uL 4.2-5.[address] [facility] Blood hemoglobin measurement (mass/volume)Ordered By: Dr. Dotson on 02-08-2023 Hemoglobin (Bld) [Mass/Vol] 13.6 g/dL 12.0-15.0 [facility] Blood lymphocytes/100 leukoc ytesOrdered By: Dr. Dotson on 02-08-2023 Lymphocytes/100 WBC (Bld) 42.6 % 19-41 [facility] Blood monocytes/100 leukocyt esOrdered By: Dr. Dotson on 02-08-2023 Monocytes/100 WBC (Bld) 5.5 % 0-10 [facility] Blood platelet mean volumeOr dered By: Dr. Dotson on 02-08-2023 Platelet mean volume (Bld) [Entitic vol] 10.0 fL 6.2-12.0 [facility] Determination of erythrocyte mean corpuscular volume (MCV)Ordered By: Dr. Dotson on 02-08-2023 MCV (RBC) [Entitic vol] 93.0 fL 81-99 [facility] Hematocrit Auto (Bld) [Volum e fraction]Ordered By: Dr. Dotson on 02-08-2023 Hematocrit (Bld) [Volume fraction] 39.6 % 37-47 [facility] INR in Blood by Coagulation assayOrdered By: Dr. Dotson on 02-08-2023 INR Coag (Bld) [Relative time] 0.8 {INR} [facility] Ketones Test strip Ql (U)Ord ered By: Dr. Dotson on 02-08-2023 Ketones Ql (U) Negative Negative [facility] Laboratory - Chemistry and C hemistry - challengeOrdered By: Dr. Dotson on 02-08-2023 CO2 [Moles/Vol] 24.0 mmol/L 21.0-32.0 [facility] Urea nitrogen/Creatinine [Mass ratio] 18.6 mg/mg 10-20 [facility] Laboratory - CoagulationOrde red By: Dr. Dotson on 02-08-2023 aPTT Coag (Bld) [Time] 23.0 s 24.1-36.2 [facility] PT Coag (PPP) [Time] 11.5 s 11.7-14.9 [facility] Laboratory - Hematology and Cell countsOrdered By: Dr. Dotson on 02-08-2023 Erythrocyte distribution width (RBC) [Entitic vol] 41.4 fL 35.1-43.9 [facility] Erythrocyte distribution width (RBC) [Ratio] 12.0 % 11.6-14.6 [facility] Immature granulocytes/100 WBC (Bld) 0.300 % 0.0-0.9 [facility] Comment on above: IG% - Immature Granu locytes (promyelocytes, myelocytes and metamyelocytes) > 1% indicates that a LEFT SHIFT is Present. MCH (RBC) [Entitic mass] 31.9 pg 27.0-32.0 [facility] Nucleated RBC/100 WBC (Bld) [Ratio] 0 % 0-5 [facility] MCHC Auto (RBC) [Mass/Vol]Or dered By: Dr. Dotson on 02-08-2023 MCHC (RBC) [Mass/Vol] 34.3 g/dL 32-[address] [facility] Mucus LM Ql (Urine sed)Order ed By: Dr. Dotson on 02-08-2023 Mucus Ql (Urine sed) 0 SEEN /hpf [facility] Nitrite Test strip Ql (U)Ord ered By: Dr. Dotson on 02-08-2023 Nitrite Ql (U) Negative Negative [facility] No Panel InformationOrdered By: Dr. Dotson on 02-08-2023 Estimated Creatinine Clearance Calc 30.02 ml/min [facility] Estimated GFR (MDRD) Amer 67 mL/min >60 [facility] Comment on above: GFR Calc Estimated GFR (MDRD) Non-Af Amer 55 mL/min >60 [facility] Comment on above: Non- GFR Calc Troponin I High Sensitivity 6 pg/mL 3.0-54.0 [facility] Comment on above: Please Note: New Linda t Units and Gender Specific Reference Ranges. For more information see Policy Stat Procedure [place] High Sensitivity Troponin (TNIH) and attachments. Platelets bldOrdered By: Dr. Dotson on 02-08-2023 Platelets (Bld) [#/Vol] 267 10*3/uL 150-450 [facility] Protein Test strip Ql (U)Ord ered By: Dr. Dotson on 02-08-2023 Protein Ql (U) Negative Negative [facility] Serum or plasma calcium andree urement (mass/volume)Ordered By: Dr. Dotson on 02-08-2023 Calcium [Mass/Vol] 9.7 mg/dL 8.5-10.1 [facility] Serum or plasma creatinine m easurement (mass/volume)Ordered By: Dr. Dotson on 02-08-2023 Creatinine [Mass/Vol] 1.02 mg/dL 0.55-1.[address] [facility] Comment on above: The validity of the calculated GFR & GFRAA in patients over 70 years has not been determined. Clinical correlation is essential. Serum or plasma urea nitroge n measurement (mass/volume)Ordered By: Dr. Dotson on 02-08-2023 Urea nitrogen [Mass/Vol] 19 mg/dL 7-18 [facility] Squamous epithelial cells de tection in urine sediment by light microscopyOrdered By: Dr. Dotson on 02-08-2023 Epithelial cells.squamous LM Ql (Urine sed) 0 SEEN /hpf 5-10 [facility] Thin prep Papanicolaou smear with manual screeningOrdered By: Dr. Dotson on 02-08-2023 Thin prep Papanicolaou smear with manual screening 10 5-15 [facility] Urine blood detectionOrdered By: Dr. Dotson on 02-08-2023 RBC Ql (U) 10 /ul Negative [facility] RBC Ql (U) 0 SEEN /hpf 0-5 [facility] Urine clarityOrdered By: Dr. Dotson on 02-08-2023 Clarity (U) Clear Clear [facility] Urine color determinationOrd ered By: Dr. Dotson on 02-08-2023 Color (U) Yellow Yellow [facility] Urine glucose detectionOrder ed By: Dr. Dotson on 02-08-2023 Glucose Ql (U) Normal mg/dl Normal [facility] Urine leukocyte esterase det ection by dipstickOrdered By: Dr. Dotson on 02-08-2023 Leukocyte esterase Test strip Ql (U) 25 /ul Negative [facility] Urine pHOrdered By: Dr. Dagmar mata on 02-08-2023 pH (U) 6.5 [pH] 5.0 - 8.0 [facility] Urine sediment bacteria coun t by microscopy (number/high power field)Ordered By: Dr. Dotson on 02-08-2023 Bacteria LM.HPF (Urine sed) [#/Area] 0 /[HPF] None Seen [facility] Urine specific gravity measu rementOrdered By: Dr. Dotson on 02-08-2023 Specific gravity (U) [Rel density] 1.010 1.002-1.030 [facility] Urobilinogen Auto test strip Ql (U)Ordered By: Dr. Dotson on 02-08-2023 Urobilinogen Ql (U) Normal mg/dl Normal [facility] CNOVon 08-03-2021 OV Office Visit (UCWSTR) -------- CLARIBELANDRZEJ GILLETTE ([id number]) 1940 F Date Time Provider Department 08/03/21 3:45 PM JACKIE CAMPBELL [facility] During your visit today, we recorded the following information about you: Temperature Pulse Respiration Blood pressure 98.1 degrees 67/minute 18/minute 142/82 Weight 76 kg Jackie Campbell APRN.CNP 08/03/2021 4:29 PM Signed Subjective HPI HPI Andrzej Barone is a 80 year old female who presents today for CC of left leg wound. This started getting red 1 week ago. Has tried nothing for relief. Symptoms are worsened by nothing. Risk factors hx of chronic skin lesion in this area. Patient not known to [facility], reports hx of renal disease. .Patient presents with: sore spot on left leg: has had for a while but last few days very sore History reviewed. No pertinent past medical history. No past surgical history on file. ALLERGIES Heparin MEDICATIONS aspirin, enteric coated (ASPIRIN, ENTERIC COATED) 81 mg EC tablet Take 81 mg by mouth. losartan (COZAAR) 50 mg tablet metoprolol succinate ER (TOPROL XL) 50 mg 24 hr tablet cholecalciferol, vitamin D3, (VITAMIN D3 ORAL) Take by mouth. MULTI-VITAMIN ORAL Take by mouth. ascorbic acid (VITAMIN C ORAL) Take by mouth. doxycycline monohydrate 100 mg tablet Take 1 tablet by mouth twice daily for 10 days. mupirocin (BACTROBAN) 2 % ointment Apply to affected area three times daily for 10 days. No family history on file. Social History Tobacco Use - Smoking status: Never Smoker - Smokeless tobacco: Never Used Substance Use Topics - Alcohol use: Not on file - Drug use: Not on file ROS Objective Blood pressure 142/82, pulse 67, temperature 36.7 ?C (98.1 ?F), temperature source Tympanic, resp. rate 18, weight 76 kg (167 lb 9.6 oz), SpO2 97 %. Physical Exam Constitutional: General: She is not in acute distress. Appearance: She is not toxic-appearing or diaphoretic. HENT: Head: Normocephalic and atraumatic. Cardiovascular: Pulses: Dorsalis pedis pulses are 1+ on the left side. Posterior tibial pulses are 1+ on the left side. Pulmonary: Effort: Pulmonary effort is normal. No accessory muscle usage or respiratory distress. Skin: Neurological: Mental Status: She is alert and oriented to person, place, and time. ASSESSMENT/PLAN: 1. Wound of skin - ICD9: 782.9, ICD10: T14.8XXA -use medication as prescribed -follow up if symptoms persist, worsen, change Will consult wound care, f/u in 1 week - DOXYCYCLINE MONOHYDRATE 100 MG TABLET - MUPIROCIN 2 % TOPICAL OINTMENT - CONSULT TO WOUND CARE FARZANEH USE ONLY Agrees to plan Jackie Campbell APRN.BJ Referring Provider: SELF [200] Allergies As of Date: 08/03/2021 Noted Allergy Reaction HEPARIN 06/05/2019 16 - Unknown Date Reviewed: 08/03/2021 Reviewed by: Jackie Campbell APRN.PUBLIC ADMINISTRATION TEACHER - Fully Assessed Reason for Visit: sore spot on left leg [Other] Cmt: has had for a while but last few days very sore Primary Visit Diagnosis:Wound of skin [T14.8XXA] Order(s):doxycycli ne monohydrate 100 mg tabletTake 1 tablet by mouth twice daily for 10 days.Disp: 20 tabletRfl: 0 mupirocin (BACTROBAN) 2 % ointmentApply to affected area three times daily for 10 days.Disp: 22 gRfl: 0 CONSULT TO WOUND CARE FARZANEH USE ONLY [[id number]] Order #: [id number]: 1 Prescriptions as of 08/03/2021 - aspirin, enteric coated (ASPIRIN, ENTERIC COATED) 81 mg EC tablet Take 81 mg by mouth. - losartan (COZAAR) 50 mg tablet - metoprolol succinate ER (TOPROL XL) 50 mg 24 hr tablet - cholecalciferol, vitamin D3, (VITAMIN D3 ORAL) Take by mouth. - MULTI-VITAMIN ORAL Take by mouth. - ascorbic acid (VITAMIN C ORAL) Take by mouth. - doxycycline monohydrate 100 mg tablet Take 1 tablet by mouth twice daily for 10 days. - mupirocin (BACTROBAN) 2 % ointment Apply to affected area three times daily for 10 days. Problem List As Of Date: 08/03/2021 (None) Prescriptions ordered this encounter Disp Refills Start End DOXYCYCLINE MONOHYDRATE 100 MG TABLET 20 t* 0 08/03/2021 08/13/2021 Cmt: May transfer to [facility] if less expensive. Route: ORAL Sig: Take 1 tablet by mouth twice daily for 10 days. MUPIROCIN 2 % TOPICAL OINTMENT 22 g 0 08/03/2021 08/13/2021 Route: TOPICAL Sig: Apply to affected area three times daily for 10 days. Encounter Status:Closed by JACKIE CAMPBELL on 08/03/21 Normal [facility] Vitamin D 25 Hydroxyon 03-07 Vitamin D 25 Hydroxy 23.5 ng/mL Low 31.0-80.0 [facility] Comment on above: Performed By: #### B MP, VITD #### [facility] Routine Lab [address] [place], [place] [address] Basic Metabolic Panlon 03-06 Anion gap molar conc 15 mmol/L Normal 9-18 [facility] Comment on above: Performed By: #### B NARESH, VITD #### [facility] Routine Lab [address] [place] [phone] Calcium mass conc 9.8 mg/dL Normal 8.5-10.2 [facility] Reference Lab Comment on above: Performed By: #### B NARESH, VITD #### [facility] Routine Lab [address] [place] [phone] Chloride molar conc 104 mmol/L Normal 97-105 [facility] Reference Lab Comment on above: Performed By: #### B NARESH, VITD #### [facility] Routine Lab [address] [place] [phone] CO2 molar conc 20 mmol/L Low 22-30 [facility] Reference Lab Comment on above: Performed By: #### B NARESH, VITD #### [facility] Routine Lab [address] [place] [phone] Creatinine mass conc 0.88 mg/dL Normal 0.58-0.96 [facility] Comment on above: Performed By: #### B NARESH, VITD #### [facility] Routine Lab [address] [place] [phone] eGFR- Amer. >60 Normal [facility] Reference Lab Comment on above: Performed By: #### B NARESH, VITD #### [facility] Routine Lab [address] [place] [phone] GFR/1.73 sq M predicted among non-blacks MDRD vol rate/area (S/P/Bld) mL/min/{1.73_m2} Normal [facility] Reference Lab Comment on above: Performed By: #### B NARESH, VITD #### [facility] Routine Lab [address] [place] [phone] Glucose mass conc 104 mg/dL High 74-99 [facility] Reference Lab Comment on above: Performed By: #### B NARESH, VITD #### [facility] Routine Lab [address], [place] [phone] Potassium molar conc 4.0 mmol/L Normal 3.7-5.1 [facility] Reference [facility] Comment on above: Performed By: #### B NARESH, VITD #### [facility] Routine Lab [address], [place] [phone] Sodium molar conc 139 mmol/L Normal 136-144 [facility] Reference Lab Comment on above: Performed By: #### B NARESH, VITD #### [facility] Routine Lab [address], [place] [phone] Urea nitrogen mass conc 14 mg/dL Normal 7-21 [facility] Reference Lab Comment on above: Performed By: #### B NARESH, VITD #### [facility] Routine Lab [address], [place] [phone] Vital Signs Date Time Vital Sign Value Performing Clinician Mehrdad litabdullahi 02-08-2023 15:40-0400 Diastolic blood pressure 53 mm[Hg] [facility] 02-08-2023 15:40-0400 Heart rate 79 /min [facility] 02-08-2023 15:40-0400 Respiratory rate 19 /min [facility] 02-08-2023 15:40-0400 SaO2% (BldA) [Mass fraction] 93 % [facility] 02-08-2023 15:40-0400 Systolic blood pressure 143 mm[Hg] [facility] 02-08-2023 13:28-0400 Body height 152.4 cm [facility] 02-08-2023 13:28-0400 Body mass index (BMI) [Ratio] 33.2 kg/m2 [facility] 02-08-2023 13:28-0400 Body temperature 97.8 [degF] [facility] 02-08-2023 13:28-0400 Body weight 77.1 kg [facility] 08-03-2021 16:04-0400 Body temperature 98.1 [degF] Jackie Campbell APRN.CNP Work Phone: [facility] 08-03-2021 16:04-0400 Body weight 76.02 kg Jackie Campbell APRN.PUBLIC ADMINISTRATION TEACHER Work Phone: [facility] 08-03-2021 16:04-0400 Diastolic blood pressure 82 mm[Hg] Jackie Campbell APRN.PUBLIC ADMINISTRATION TEACHER Work Phone: [facility] 08-03-2021 16:04-0400 Heart rate 67 /min Jackie Campbell MEDICATION COORDINATOR.PUBLIC ADMINISTRATION TEACHER Work Phone: [facility] 08-03-2021 16:04-0400 Respiratory rate 18 /min Jackie Campbell MEDICATION COORDINATOR.PUBLIC ADMINISTRATION TEACHER Work Phone: [facility] 08-03-2021 16:04-0400 SaO2% (BldA) [Mass fraction] 97 % Jackie Campbell APRN.PUBLIC ADMINISTRATION TEACHER Work Phone: [facility] 08-03-2021 16:04-0400 Systolic blood pressure 142 mm[Hg] Jackie Campbell MEDICATION COORDINATOR.PUBLIC ADMINISTRATION TEACHER Work Phone: [facility] Encounters Encounter Date Encounter Type Care Provider Facility Start: 02-27-2024 End: 02-27-2024 [facility] Facility:[facility] Start: 02-08-2023 End: 02-08-2023 Emergency department patient visit [facility] Start: 05-15-2022 End: 05-15-[address] [facility] Start: 08-03-2021 End: 08-03-2021 Patient encounter procedure Jackie Campbell APRN.PUBLIC ADMINISTRATION TEACHER Work Phone: [facility] Comment on above: Wound of skin (Prima ry Dx) Procedures Date Procedure Procedure Detail Performing Clinician Start: 02-08-2023 CT of head without contrast Start: 02-08-2023 Plain chest X-ray Plan of Treatment Date Care Activity Detail Author Start: 02-08-[address] [facility] Start: 02-08-2023 End: 02-08-2023 [facility] Start: 06-06-2021 Influenza vaccination INFLUENZA (#1) [facility] Start: 07-18-2018 [facility] Start: 2004 ADVANCE DIRECTIVE DISCUSSION ADVANCE DIRECTIVE DISCUSSION [facility] Start: 2004 BONE DENSITY BONE DENSITY [facility] Start: 2004 PNEUMOVAX AGE 65 AND OVER WITH 5YR LOOKBACK (#1) PNEUMOVAX AGE 65 AND OVER WITH 5YR LOOKBACK (#1) [facility] Start: 1989 SHINGRIX VACCINE (1 of 2) SHINGRIX VACCINE (1 of 2) [facility] Start: 1958 Urine microalbumin profile DTAP,TDAP,TD (1 - Tdap) [facility] Start: 1951 COVID-19 VACCINE (1) COVID-19 VACCIN E (1) [facility] Patient Education ED Blurred Vis ion ED Hypertension, Established [facility] Work Phone: Patient referral [facility] Work Phone: Payers Date Payer Category Payer Self-pay [id number] 2015 Private Health Insurance [id number] 2014 Medicare HUMANA MEDICARE HU[employer]NA MEDICARE PPO [id number] 2014-Present PPO [id number] 2004 Medicare [id number] Unknown [id number] Unknown [id number] Social History Date Type Detail Facility [facility]: [facility] Start: 08-03-2021 Tobacco use and exposure Never used [facility] Start: 1940 Sex Assigned At Not on file [facility] Exposure to SARS-CoV -2 (event) Not sure [facility] Start: 08-14-2021 End: 02-08-2023 Tobacco smoking status NHIS Unknown if ever smoked [facility] Start: 1940 Sex Assigned At Female [facility] Progress note 08-03-2021 Note Date & Type Note Facility 08-03-2021 Note HNO ID: [id number] Author: Jackie Campbell APRN.PUBLIC ADMINISTRATION TEACHER Service: ? Author Type: Nurse Practitioner Type: Progress Notes Filed: 08/03/2021 4:29 PM Note Text: Subjective HPI HPI Andrzej Barone is a 80 year old female who presents today for CC of left leg wound. This started getting red 1 week ago. Has tried nothing for relief. Symptoms are worsened by nothing. Risk factors hx of chronic skin lesion in this area. Patient not known to [facility], reports hx of renal disease. .Patient presents with: sore spot on left leg: has had for a while but last few days very sore History reviewed. No pertinent past medical history. No past surgical history on file. ALLERGIES Heparin MEDICATIONS aspirin, enteric coated (ASPIRIN, ENTERIC COATED) 81 mg EC tablet Take 81 mg by mouth. losartan (COZAAR) 50 mg tablet metoprolol succinate ER (TOPROL XL) 50 mg 24 hr tablet cholecalciferol, vitamin D3, (VITAMIN D3 ORAL) Take by mouth. MULTI-VITAMIN ORAL Take by mouth. ascorbic acid (VITAMIN C ORAL) Take by mouth. doxycycline monohydrate 100 mg tablet Take 1 tablet by mouth twice daily for 10 days. mupirocin (BACTROBAN) 2 % ointment Apply to affected area three times daily for 10 days. No family history on file. Social History Tobacco Use - Smoking status: Never Smoker - Smokeless tobacco: Never Used Substance Use Topics - Alcohol use: Not on file - Drug use: Not on file ROS Objective Blood pressure 142/82, pulse 67, temperature 36.7 ?C (98.1 ?F), temperature source Tympanic, resp. rate 18, weight 76 kg (167 lb 9.6 oz), SpO2 97 %. Physical Exam Constitutional: General: She is not in acute distress. Appearance: She is not toxic-appearing or diaphoretic. HENT: Head: Normocephalic and atraumatic. Cardiovascular: Pulses: Dorsalis pedis pulses are 1+ on the left side. Posterior tibial pulses are 1+ on the left side. Pulmonary: Effort: Pulmonary effort is normal. No accessory muscle usage or respiratory distress. Skin: Neurological: Mental Status: She is alert and oriented to person, place, and time. ASSESSMENT/PLAN: 1. Wound of skin - ICD9: 782.9, ICD10: T14.8XXA -use medication as prescribed -follow up if symptoms persist, worsen, change Will consult wound care, f/u in 1 week - DOXYCYCLINE MONOHYDRATE 100 MG TABLET - MUPIROCIN 2 % TOPICAL OINTMENT - CONSULT TO WOUND CARE FARZANEH USE ONLY Agrees to plan Jackie Campbell APRN.[facility] History of Present illness Narrative 08-03-2021 Jackie Campbell APRN.[facility] - 08/03/2021 4:25 PM EDT Note Date & Type Note Facility 08-03-2021 History of Presen t illness Narrative Images from the original note were not included. Subjective HPI HPI Andrzej Barone is a 80 year old female who presents today for CC of left leg wound. This started getting red 1 week ago. Has tried nothing for relief. Symptoms are worsened by nothing. Risk factors hx of chronic skin lesion in this area. Patient not known to [facility], reports hx of renal disease. .Patient presents with: sore spot on left leg: has had for a while but last few days very sore History reviewed. No pertinent past medical history. No past surgical history on file. ALLERGIES Heparin MEDICATIONS aspirin, enteric coated (ASPIRIN, ENTERIC COATED) 81 mg EC tablet Take 81 mg by mouth. losartan (COZAAR) 50 mg tablet metoprolol succinate ER (TOPROL XL) 50 mg 24 hr tablet cholecalciferol, vitamin D3, (VITAMIN D3 ORAL) Take by mouth. MULTI-VITAMIN ORAL Take by mouth. ascorbic acid (VITAMIN C ORAL) Take by mouth. doxycycline monohydrate 100 mg tablet Take 1 tablet by mouth twice daily for 10 days. mupirocin (BACTROBAN) 2 % ointment Apply to affected area three times daily for 10 days. No family history on file. Social History Tobacco Use Smoking status: Never Smoker Smokeless tobacco: Never Used Substance Use Topics Alcohol use: Not on file Drug use: Not on file ROS Objective Blood pressure 142/82, pulse 67, temperature 36.7 C (98.1 F), temperature source Tympanic, resp. rate 18, weight 76 kg (167 lb 9.6 oz), SpO2 97 %. Physical Exam Constitutional: General: She is not in acute distress. Appearance: She is not toxic-appearing or diaphoretic. HENT: Head: Normocephalic and atraumatic. Cardiovascular: Pulses: Dorsalis pedis pulses are 1+ on the left side. Posterior tibial pulses are 1+ on the left side. Pulmonary: Effort: Pulmonary effort is normal. No accessory muscle usage or respiratory distress. Skin: Neurological: Mental Status: She is alert and oriented to person, place, and time. ASSESSMENT/PLAN: 1. Wound of skin - ICD9: 782.9, ICD10: T14.8XXA -use medication as prescribed -follow up if symptoms persist, worsen, change Will consult wound care, f/u in 1 week - DOXYCYCLINE MONOHYDRATE 100 MG TABLET - MUPIROCIN 2 % TOPICAL OINTMENT - CONSULT TO WOUND CARE FARZANEH USE ONLY Agrees to plan Jackie Campbell APRN.CNP documented in this encounter [facility] Evaluation note Note Date & Type Note Facility Evaluation note Diagnosis Wound of skin- Primary documented in this encounter [facility] Evaluation note Note Date & Type Note Facility Evaluation note No assessment information availa [facility] Work Phone: Summary Purpose Family History No Family History Records Found Relationship Condition Age at Onset Recorded Date/T duyen father Coronary artery disease Unknown mother Diabetes mellitus Unknown Hypertension Unknown sister Diabetes mellitus Unknown Advance Directives No Advanced Directives Records Found Advance Directive Response Recorded Date/ Time Living Will No June 05 9 7:05pm Power of Name Plate Stamping Machine Operator No June 05 019 7:05pm Advance Directive Response Recorded Date/ Time Living Will Yes February 08, 2023 1: 53pm Power of Name Plate Stamping Machine Operator Yes February 08, 2023 1:53pm Name of Medical Power of Name Plate Stamping Machine Operator Juanita Maldonado coretta February 08, 2023 1:53pm Chief Complaint and Reason for Visit Chief Complaint vision change Additional Source Comments INFORMATION SOURCE (unrecogn ized section and content) DATE CREATED AUTHOR 03/10/2019 [facility] DATE CREATED AUTHOR AUTHOR'S ORGANIZ ATION 08/05/2021 [facility] DATE CREATED AUTHOR AUTHOR'S ORGANIZ ATION 03/16/2025 [facility] Source Comments (unrecognize d section and content) In the event this informatio n is protected by the Federal Confidentiality of Alcohol and Drug Abuse Patient Records regulations: The Federal rules restrict any use of the information to criminally investigate or prosecute any alcohol or drug abuse patient.[facility] Reason for Visit (unrecogniz ed section and content) Reason Comments sore spot on left leg has had for a whil e but last few days very sore Goals (unrecognized section and content) Goals may be documented in a n alternate sectionGoals may be documented in an alternate section Care Teams (unrecognized sec tion and content) Team Status: Active Member Role Status Dates Dr. Gricel Helton MD Family Provider Active Dr. Gricel Helton MD Primary Care Provider Active Team Status: Inactive Member Role Status Dates Dr. Gricel Helton MD Primary Care Provider Active Dr. Everett Dotson , Emergency Provider Active FOR RECORDS PERTAINING TO PATIENTS WHO ARE OR HAVE BEEN ENROLLED IN A CHEMICAL DEPENDENCY/SUBSTANCEABUSE PROGRAM, SOME INFORMATION MAY BE OMITTED. This clinical summary was aggregated from multiple sources. Caution should be exercised in using it in the provision of clinical care. This summary normalizes information from multiple sources, and as a consequence, information in this document may materially change the coding, format and clinical context of patient data. In addition, data may be omitted in some cases. CLINICAL DECISIONS SHOULD BE BASED ON THE PRIMARY CLINICAL RECORDS. [employer] provides no warranty or guarantee of the accuracy or completeness of information in this document.
[2025-04-06 11:21] LABS: Creatinine, Urine (random) 17.90 mg/dL (28.00-217.00); Microalbumin,Random Urine < 12.0 mg/L (NO RANGE EST.)
[2025-04-06 13:38] LABS: AST(SGOT) 20 U/L (<=31); Alanine Aminotransfer ALT/SGPT 17 U/L (<=34); Albumin, Serum 4.0 g/dL (3.4-4.8); Alkaline Phosphatase 74 U/L (35-104); Anion Gap 10 (5-15); BUN 15 mg/dL (4-19); BUN/Creat Ratio 17.4 RATIO (10-20); Calcium,Total 9.3 mg/dL (7.6-11.0); Carbon Dioxide 24.0 mmol/L (21.0-32.0); Chloride 103 mmol/L (98-108); Cholesterol 191 mg/dL (<=200); Globulin 2.4 g/dL (2.2-4.2); Glucose 130 mg/dL (70-99); Low Density Lipoprotein Calc. 109 mg/dL; Potassium 4.0 mmol/L (3.3-5.1); Triglycerides 89 mg/dL; Very Low Density Lipoprotein 18 mg/dL (5-40); Vitamin D,25 Hydroxy 31.3 ng/mL (30-100); cholesterol:hdl ratio screen 2.97
== END | disposition home or self-care (01) ==
LOC: MTLAB 08:08
DX: Z00.00 Encounter for general adult medical examination without abnormal findings (principal); Z23 Encounter for immunization
CPT/HCPCS: 36415; 80053; 80061; 82043; 82306; 82570; 83036; 84443

== ENCOUNTER → 2025-09-21 | Outpatient (CLI) | payer MEDICARE, SELFPAY ==
--- NOTE | 2025-09-21 13:00 | NEURO ---
NCS and/or EMG Patient Report Ordering Doctor: Raya Echeverria DATE OF SERVICE: 09/21/25 Laureen presents with complaints of numbness and tingling in the right hand. Electrodiagnostic findings: Right median motor nerve demonstrates prolonged distal latency with reduced amplitude and reduced conduction velocity. Right ulnar motor response within normal limits. Absent right median sensory latency at the wrist. Needle EMG testing was performed the right upper limb. All muscles tested showed no evidence of denervation with normal motor unit action potentials. Electrodiagnostic impression: This is an abnormal study in the right upper limb 1. Electrodiagnostic findings suggestive of right-sided median mononeuropathy. This is consistent with a moderate severe right carpal tunnel syndrome Multi Select Codes Neurology Neurology Interp Codes: 22308-19 Musc test done w/n test comp (interp) and 39701-38 Nrv cndj tst 5-6 studies (interp)
== END | disposition home or self-care (01) ==
LOC: PSN 08:41
PROVIDERS: PCP Family Medicine
DX: R20.2 Paresthesia of skin (principal)
CPT/HCPCS: 95886; 95909